=== PATIENT | female | born 1940 | race Two or more races ===

== ENCOUNTER → 2025-03-10 | Day surgery (SDC) | payer OTHER ==
[~2025-03-10] VITALS: Ht 160 cm; Wt 51.3 kg
[~2025-03-10] MED LIST: ALEN35TA18 PO; ASPI81CH59 PO; BUPIVACAINE 0.5% P/F INJ 10 ML VIAL ONE; CALCTAB62 OR; CHOL100055 PO; CYCL0.05 OP; HYDROmorphone HCL 2 MG/ML VL/or syr IV PRN; KETAMINE 50mg/ML 1ml syringe ONE; KETOROLAC TROMETH 30 MG/ML 1ML VIAL IV ONE; LATA0.008 OP; LIDOCAINE 1% INJ PF 5ML AMP ONE; LISI20TA56 PO; LUTE6TAB PO; METOCLOPRAMIDE HCL 5MG/ml INJ 2ml VIAL IV ONE; MIDAZOLAM HCL 2MG/2ML 2ml VIAL (1mg/ml) ONE; MORPHINE SULFATE 4 MG/ML SYR/VIAL IV PRN; MORPHINE SULFATE INJ 2 MG/ml SYRG IV PRN; MULT-1018 OR; ONDANSETRON HCL 4 MG/2 ML VIAL ONE; PROPOFOL 10 MG/ML 20 ML IV ONE; TIMO0.5S28 OP; TRAZ-228 PO; [UNRECOGNIZED DRUG - CODE] OR; ceFAZolin 2 GM/D5W50ml 50 ML IV ONE; fentaNYL CITRATE 100 MCG/2 ML VL ONE
[2025-03-10] MEDS: BUPIVACAINE HCL 0.25% P/F 10 ML VIAL ONE (10:00)
[2025-03-10] MEDS: LIDOCAINE 1% HCL (LOCAL ANESTH.) INJ 20ML MDV ONE (10:01)
[2025-03-10 10:30] VITALS: PULSE 98; RESP 17; TEMP 97; O2SAT 98
[2025-03-10 10:40] VITALS: PULSE 89; RESP 17; O2SAT 95
[2025-03-10 11:30] VITALS: BP 117/56; PULSE 86; RESP 12; O2SAT 94
--- NOTE | 2025-03-10 12:01 | DVHOP2 ---
Discharge Orders Discharge Orders DISCHARGE WHEN CRITERIA MET DISCHARGE WHEN CRITERIA MET. Operative Rep- Outpatient Operative Report PRE-OP DIAGNOSIS: RIGHT PATELLA FRACTURE POST-OP DIAGNOSIS: SAME [place] protocol followed: Yes ESTIMATED BLOOD LOSS: MINIMAL PROCEDURE: OPEN REDUCTION INTERNAL FIXATION OF RIGHT PATELLA FRACTURE RADIOGRAPHIC INTERPRETATION OF RIGHT PATELLA FRACTURE FLUOROSCOPIC Negative pressure wound VAC SURGEON/WINDOWS SERVER ENGINEER: Mayur CHENG ANESTHESIA: Spinal ANESTHESIOLOGIST: INFORMED CONSENT: Informed Consent: Discussed all inherent risks, complications, and alternatives treatments with the patient. Patient has agreed to proceed with the procedure. I have reviewed all pre-operative assessments including Labs, EKGs, and radiographic images that has been performed. Patient is an appropriate candidate for the outpatient surgical center procedure. The patient is a 84-year-old female who has a displaced patella fracture of the patient also has a wound on the medial aspect of the anterior aspect of the of the patella. The patient was an abrasion noted the patient was educated on the risks and benefits the patient also has significant osteopenia noted I did educate the patient has a goal of the surgical procedure with a PEG fixed the fracture of the best of our ability versus doing an inferior patellectomy the patient understands the risks and benefits of surgical and nonsurgical treatment we did educate the patient reduced an implant with suture fixation to help reduce the fracture load the patient was educated on the risks and benefits of surgical and nonsurgical treatment the patient understands the risks of surgical treatment. The patient was seen in the preoperative holding of the fracture location was marked the patient was brought to operative suite general anesthesia was then induced the right lower extremity was prepped and draped in the standard fashion Esmarch was then inflated once I was then completed of the right lower extremity was prepped and draped in the standard fashion incision was made through skin subcu tissue and down to the patella fragments we irrigated of the patella fragments removed all of the excess soft tissue of the patella fractures on both sides were used to [id number] clamps in AP and lateral x-ray were changed TXA significant comminution noted on the inferior aspect was a small patella made based on the fact the patient's size and not any more prominent in the hardware for this patient based on these parameters of the patient's size 2K all of his wires were then placed we placed a locking screw was of the fracture to ensure adequate fracture fixation was then noted. Once it was then used we used the suture through the proximal quad through the adjustable loop to tightened down the quad then we used to locking sutures on the inferior aspect of the patellar tendon and tied [id number] with a Krackow then we crack out of the extensor mechanism with a was [id number] on both sides on the medial and lateral aspect with a Krackow suture on the medial and lateral aspect of the retinaculum to clear repair of the retinaculum once we did the stress radiographs of the construct and move as 1 plane. We then irrigated the the area with multiple amounts of saline and then added bone graft to help with the fracture fragment once it was then done irrigation was then noted in the appropriate manner that it was then closed with 0 Vicryl 2-0 Monocryl haley and negative pressure wound VAC was then placed the patient will be weight-bearing as tolerated extension. MAYUR DEL RIO MD Mar 10, 2025 12:01
--- NOTE | 2025-03-10 12:06 | DVH ---
C-ARM FLUOROSCOPY: PROCEDURE: ORIF right patella FLUOROSCOPY TIME: 14.6 sec DAP: 0.34 mgy FINDINGS: Spot intraoperative C arm radiographs demonstrating ORIF right. IMPRESSION: Please refer to surgical report for detailed findings.
--- NOTE | 2025-03-10 12:06 | DVH ---
C-ARM FLUOROSCOPY: PROCEDURE: ORIF right patella FLUOROSCOPY TIME: 14.6 sec DAP: 0.34 mgy FINDINGS: Spot intraoperative C arm radiographs demonstrating ORIF right. IMPRESSION: Please refer to surgical report for detailed findings.
== END | disposition home or self-care (01) ==
LOC: SUR 07:01
PROVIDERS: ATTEND Orthopaedic Surgery Adult Reconstructive Orthopaedic Surgery
DX: S82.041A Displaced comminuted fracture of right patella, initial encounter for closed fracture (principal); I12.9 Hypertensive chronic kidney disease with stage 1 through stage 4 chronic kidney disease, or unspecified chronic kidney disease; E11.22 Type 2 diabetes mellitus with diabetic chronic kidney disease; N18.2 Chronic kidney disease, stage 2 (mild); M81.0 Age-related osteoporosis without current pathological fracture; Z79.82 Long term (current) use of aspirin; Z79.899 Other long term (current) drug therapy; Z91.09 Other allergy status, other than to drugs and biological substances; Z90.49 Acquired absence of other specified parts of digestive tract; Z86.2 Personal history of diseases of the blood and blood-forming organs and certain disorders involving the immune mechanism
CPT/HCPCS: 27524; 73560; J0690; J2003; J2250; J2405; J2704; J3010; J3490; 76000

== ENCOUNTER 2025-03-13 10:33 | Emergency (ER) | payer OTHER ==
[~2025-03-13] VITALS: Ht 160 cm; Wt 51.0 kg
[~2025-03-13 10:33] MED LIST changes: -BUPIVACAINE 0.5% P/F INJ 10 ML VIAL ONE; -HYDROmorphone HCL 2 MG/ML VL/or syr IV PRN; -KETAMINE 50mg/ML 1ml syringe ONE; -KETOROLAC TROMETH 30 MG/ML 1ML VIAL IV ONE; -LIDOCAINE 1% INJ PF 5ML AMP ONE; -METOCLOPRAMIDE HCL 5MG/ml INJ 2ml VIAL IV ONE; -MIDAZOLAM HCL 2MG/2ML 2ml VIAL (1mg/ml) ONE; -MORPHINE SULFATE 4 MG/ML SYR/VIAL IV PRN; -MORPHINE SULFATE INJ 2 MG/ml SYRG IV PRN; -ONDANSETRON HCL 4 MG/2 ML VIAL ONE; -PROPOFOL 10 MG/ML 20 ML IV ONE; -ceFAZolin 2 GM/D5W50ml 50 ML IV ONE; -fentaNYL CITRATE 100 MCG/2 ML VL ONE
--- NOTE | 2025-03-13 10:47 | ED.PDOC ---
History of Present Illness HPI Comments This is a 84 year old female presenting to the ED with chief complaint of Wound- Vac problem. Daughter reports that the patient had recent right knee surgery performed 3 days ago, having a knee immobilizer and Wound-Vac placed. Daughter relays that no cupola charger insulation for the device was provided and it was supposed to stay on for a week, however, the Wound-Vac just turned off an hour ago, lasting only 3 days. Daughter states that they were advised to come in for a replacement battery or to charge the device. Patient denies any knee pain, fever, chills, numbness, weakness, or tingling. Time Seen by MD: 10:43 Reviewed Notes: Nurses Notes, Medications, Allergies Allergies: Uncoded Allergies: iron oxide (Allergy, Mild, itchy, 03/07/25) Home Meds Reported Medications Aspirin (Aspirin Low Dose) 81 Mg Chw, 81 MG PO DAILY, TAB.CHEW 03/07/25 Cyclosporine (Ophth) (Restasis) 0.05 % Emu, 0.05 % OP DAILY, EA 03/07/25 Latanoprost (LATANOPROST) 0.005 % Karen, 0.005 % OP QPM, ML 03/07/25 Timolol Maleate (Timolol Maleate Ophthalmi) 0.5 % Karen, 0.5 % OP BID, ML 03/07/25 Lutein-Zeaxanthin (Lutein W/Zeaxanthin) 1 Tab Tab, 1 TAB PO DAILY, TAB 03/07/25 Multiple Vitamin (Multivitamins) Tab, 1 OR DAILY, TAB 03/07/25 [place]-3 Fatty Acids (FISH OIL EXTRA STRENGTH) 1,200 Mg Cap, 1400 MG OR DAILY, CAP 03/07/25 Trazodone Hcl (Trazodone Hcl) 100 Mg Tab, 50 MG PO HS, TAB 03/07/25 Alendronate Sodium (Alendronate Sodium) 35 Mg Tab, 35 MG PO Q7D, TAB 03/07/25 Lisinopril (Lisinopril) 20 Mg Tab, 10 MG PO DAILY, TAB 03/07/25 Cholecalciferol (D3) 1,000 Unit Tab, 1000 UNIT PO DAILY, TAB 03/07/25 Calcium Carbonate-Vitamin D (Calcium 500 + D) +D Tab, 1 OR DAILY, TAB 03/07/25 Information Source: Patient, Relative (Child) Mode of Arrival: Wheelchair Severity: Mild Timing: Hours Duration: Since onset Prehospital treatment: None Past Medical History PAST MEDICAL HISTORY: Denies Surgical History (Other): Rt knee surgery BORE MILL OPERATOR History: No Pertinent BORE MILL OPERATOR History Family History Family History: Reviewed,noncontributory to illness Social History Smoker: Non-Smoker Alcohol: Denies ETOH Use Drugs: Denies Drug Use Lives In: Home Constitutional: denies: chills, diaphoresis, fatigue, fever, malaise, sweats, w eakness, others EENTM: denies: blurred vision, double vision, ear bleeding, ear discharge, ear drainage, ear pain, ear ringing, eye pain, eye redness, hearing loss, mouth pain, mouth swelling, nasal discharge, nose bleeding, nose congestion, nose pain, photophobia, tearing, throat pain, throat swelling, voice changes, others Respiratory: denies: cough, hemoptysis, orthopnea, SOB at rest, shortness of breath, SOB with excertion, stridor, wheezing, others Cardiovascular: denies: chest pain, dizzy spells, diaphoresis, Dyspnea on exertion, edema, irregular heart beat, left arm pain, lightheadedness, palpitations, PND, syncope, others Gastrointestinal: denies: abdomen distended, abdominal pain, blood streaked bowels, constipated, diarrhea, dysphagia, difficulty swallowing, hematemesis, melena, nausea, poor appetite, poor fluid intake, rectal bleeding, rectal pain, vomiting, others Genitourinary: denies: abnormal vagina bleeding, burning, dyspareunia, dysuria, flank pain, frequency, hematuria, incontinence, pain, , vagina di scharge, urgency, others Neurological: denies: dizziness, fainting, headache, left sided numbness, left sided weakness, numbness, paresthesia, pre-existing deficit, right sided numbness, right sided weakness, seizure, speech problems, tingling, tremors, weakness, others Musculoskeletal: denies: back pain, gout, joint pain, joint swelling, muscle pain, muscle stiffness, neck pain, others Integumetry: denies: bruises, change in color, change in hair/nails, dryness, laceration, lesions, lumps, rash, wounds, others Allergic/Immunocompromised: denies: Difficulty Healing, Frequent Infections, Hives, Itching, others Hematologic/Lymphatic: denies: anemia, blood clots, easy bleeding, easy bruising, swollen glands, others Endocrine: denies: excessive hunger, excessive sweating, excessive thirst, excessive urination, flushing, intolerance to cold, intolerance to heat, unexplained weight gain, unexplained weight loss, others Psychiatric: denies: anxiety, bipolar disorder, depression, hopeless, panic disorder, schizophrenia, sleepless, suicidal, others All Other Systems: Reviewed and Negative Physical Exam General Appearance: No Apparent Distress, Normal HEENT: Normal ENT Inspection, Pharynx Normal, TMs Normal Neck: Full Range of Motion, Non-Tender, Normal, Normal Inspection Respiratory: Chest Non-Tender, Lungs Clear, No Accessory Muscle Use, No Respiratory Distress, Normal Breath Sounds Cardiovascular: No Edema, No JVD, No Murmur, No Gallop, Normal Peripheral Pulses, Regular Rate/Rhythm Breast Exam: Deferred Gastrointestinal: No Organomegaly, Non Tender, No Pulsatile Mass, Normal Bowel Sounds, Soft Genitalia: Deferred Pelvic: Deferred Rectal: Deferred Extremities: No calf tenderness, Normal capillary refill, Normal inspection, N ormal range of motion, Non-tender, No pedal edema, Other (Right knee immobilizer in place, wound-vac not active.) Musculoskeletal : Apperance: Normal Neurologic: Alert, core extruder II-XII nml as Tested, No Motor Deficits, Normal Affect, Normal Mood, No Sensory Deficits Cerebellar Function: Normal Reflexes: Normal Skin: Dry, Normal Color, Warm Lymphatic: No Adenopathy Was a procedure done? Was a procedure done?: No Differential Dx Considerations may include: equipment failure, operation of equipment error, wound check X-Ray, Labs, Meds, VS Vital Signs Date Time Temp Pulse Resp B/P (MAP) Pulse Ox O2 Delivery O2 Flow Rate FiO2 03/13/25 11:00 98.3 72 16 159/61 (93 95 98.3 Time of 1ST Reevaluation: 11:43 Reevaluation 1ST: Unchanged Patient Education/Counseling: Diagnosis, Treatment, Prognosis, Need For Follow Up Family Education/Counseling: Diagnosis, Treatment, Prognosis, Need For Follow Up, No Family Present Comments i called and left a message for wound team to come to ER. however, pt was also able to call the ortho office and was told to go there to get a cupola charger insulation/battery. pt elopeed after informing us Additional Information Reviewed patient's previous visit(s): None The following tests were ordered, and results were reviewed by me: None Additional information was gathered from interviewing the following independent historian: Daughter I reviewed and agreed with the following test results read by other provider: None I discussed treatments and results with medical personnel and: Patient and daughter Comprehensive systems review obtained and negative except for what is stated in the HPI. SEPSIS Sepsis Screen Physician Orders * Wound Consult (03/13/25 ) Vital Signs Date Time Temp Pulse Resp B/P (MAP) Pulse Ox O2 Delivery O2 Flow Rate FiO2 03/13/25 11:00 98.3 72 16 159/61 (93) 95 98.3 Departure 1 Departure Time of Disposition: 12:11 Impression: Primary Impression: Evaluation by medical service required Additional Impressions: Postop check Encounter for management of wound VAC Disposition: 07 LEFT AWOL/ELOPED Condition: Stable Discharged With: Self, Relative Critical Care Note Critical Care Time?: No Stability Stability form required: No Heart Score Heart Score: Heart Score Response (Comments) Value History N/A 0 EKG N/A 0 Age N/A 0 Risk Factors N/A 0 Troponin N/A 0 Total 0 I personally scribed for DARRION ROJO MD ([email or web address]) on 03/13/25 at 10:47. Electronically submitted by George Wright ([email or web address]). DARRION ROJO MD Mar 13, 2025 10:47
[2025-03-13 11:00] VITALS: BP 159/61; PULSE 72; RESP 16; TEMP 98.3; O2SAT 95
== END 2025-03-13 11:32 | disposition left against medical advice (07) ==
LOC: ER 10:33
DX: Z48.00 Encounter for change or removal of nonsurgical wound dressing (principal); Z79.82 Long term (current) use of aspirin; Z79.899 Other long term (current) drug therapy; Z98.890 Other specified postprocedural states